=== PATIENT | female | born 1990 | race Two or more races ===

== ENCOUNTER 2016-09-03 23:59 | Inpatient (IN) ==
[2016-09-04] MEDS ORDERED: LACTATED RINGERS 500 ML IV PRN (00:45)
[2016-09-04] MEDS ORDERED: TERBUTALINE 1 MG/1 ML VIAL SUBCUT PRN (00:45)
[2016-09-04] MEDS ORDERED: BUTORPHANOL 2 MG/ML VIAL IV PRN (00:45)
[2016-09-04] MEDS ORDERED: ONDANSETRON 4 MG/2 ML VIAL IV PRN (00:45)
[2016-09-04] MEDS ORDERED: OXYTOCIN/LR 20 UNIT/1,000 ML BAG IV SCH (01:00)
[2016-09-04] MEDS: LACTATED RINGERS 1,000 ML IV SCH ×3 (01:00→07:32)
[2016-09-04 01:41] LABS: Basophils % 0.3 % (0.0-0.8); Eosinophils % 0.4 % (0.00-10.9); Hematocrit 36.7 VOL% (35.7-47.0); Hemoglobin 11.6 GM/DL (12.0-16.0); Immature Granulocytes % 0.7 %; Immature Granulocytes Absolute 0.05 #; Lymphocytes # 1.8 10*3/uL (1.4-4.0); Lymphocytes % 25.3 % (21.3-54.2); Mean Corpuscular HGB Conc 31.6 GM/DL (32-36); Mean Corpuscular Hemoglobin 28 PG (27-34); Mean Corpuscular Volume 88.4 FL (87-102); Mean Platelet Volume 13.8 FL (9.6-12.0); Monocytes # 0.5 10*3/uL (0.11-0.8); Monocytes % 7.4 % (1.7-12.7); Neutrophils # 4.8 10*3/uL (1.4-7.4); Neutrophils % 65.9 % (38.7-73.9); Platelet Count 158 T/CUMM (130-400); Red Blood Count 4.15 MC/CUMM (3.8-5.5); Red Cell Distribution Width 17.3 % (9.3-17.3); White Blood Count 7.3 T/CUMM (4-12)
[2016-09-04] MEDS ORDERED: LACTATED RINGERS 1,000 ML IV ONE (06:31)
[2016-09-04] MEDS ORDERED: FAMOTIDINE 20 MG/2 ML VIAL IV ONE (06:31)
[2016-09-04] MEDS ORDERED: diphenhydrAMINE 50 MG/1 ML VIAL IV PRN ×2 (06:31)
[2016-09-04] MEDS ORDERED: PROMETHAZINE 25 MG/1 ML VIAL IM ONE (06:31)
[2016-09-04] MEDS ORDERED: LACTATED RINGERS 250 ML IV PRN (06:31)
[2016-09-04] MEDS ORDERED: hydrOXYzine HCL 25 MG/1 ML VIAL IM PRN (06:31)
[2016-09-04] MEDS ORDERED: CITRIC ACID/SODIUM CITRATE 30 ML UDCUP PO ONE (06:31)
[2016-09-04] MEDS ORDERED: ePHEDrine 50 MG/ML AMP IV PRN (06:31)
[2016-09-04] MEDS ORDERED: fentaNYL 2 MCG/ROPIV 0.2% EPID 150 ML EPIDURAL SCH (06:31)
[2016-09-04] MEDS ORDERED: LACTATED RINGERS 1,000 ML IV SCH (07:00)
--- NOTE | 2016-09-04 08:53 | History and Physical Update ---
History and Physical Update - History and Physical H&P was reviewed, the patient examined and there: are no changes in the patients condition since last H&P was completed.
--- NOTE | 2016-09-04 08:55 | Operative Note ---
Date of procedure: 09/04/16 Pre-op diagnosis: spontaneous rupture of membranes at 39 weeks. Post-op diagnosis: same Procedure: Spontaneous vaginal delivery Over an intact perineum the patient delivered a liveborn male via spontaneous vaginal delivery. The baby's head was delivered in the MIKE position. Baby had a nuchal cord 1 which was easily reduced. Baby's nose mouth bulb suctioned the perineum. Anterior posterior shoulders followed by the body were delivered with ease. Baby was placed onto the maternal abdomen umbilical cord was doubly clamped and then cut by the father. Cord blood was sent. Placenta was delivered spontaneously and intact with three-vessel cord. Uterus was massaged until was found be firm and well contracted. Hemostasis found be adequate. Therefore all instruments from the the patient. At the end procedure all sponge lap millimeters needle and instrument counts correct 2. Baby and mother stable condition. Apgars 9 and 9. Anesthesia: epidural Surgeon / Physician: David Osuna Estimated blood loss: other (75 mL) Specimens: none sent Condition: stable Disposition: floor Results - Labs CBC & BMP: 09/04/16 01:20 Discharge Plan - Discharge Medications No Action Pnv95/Ferrous Fumarate/FA [ Tablet] 1 tablet PO DAILY - Follow Up or Referral - Forms/Instructions
--- NOTE | 2016-09-04 08:57 | Discharge Summary ---
Hospital Course - Hospital Course Hospital Course: This is a 25-year-old multiparous female was admitted at 39 weeks. Spontaneous rupture membranes and active labor. Patient subsequently delivered a liveborn male via spontaneous vaginal delivery. Hospital course unremarkable day #2 she was ready for discharge Discharge Plan - Discharge Data Disposition: Disch To Home/Self Care Condition at Discharge: Stable Discharge Diet: advance to your usual diet Activity: resume usual activities as tolerated (pelvic rest) Hygiene: no restrictions Weight Bearing at Discharge: full weight bearing Driving: no restrictions Contact your physician if you experience:: fever over 101, Difficulty voiding, Redness or swelling, Nausea/Vomiting, Shortness of breath, Bleeding, pain uncontrolled by pain medications - Discharge Medications Continue Ibuprofen 800 mg PO Q8H #60 tablet No Action Pnv95/Ferrous Fumarate/FA [ Tablet] 1 tablet PO DAILY - Follow Up or Referral Follow Up: David Osuna MD [Physician] - 1 Month - Forms/Instructions Exam - Constitutional Vitals: Period Temp Pulse Resp BP Sys/Oakes Pulse Ox Last 24 Hr 97.4 F-97.8 F 70 18 119/69 General appearance: no acute distress - Head Head exam: Present: normocephalic - ENT ENT exam: Present: normal exam - Neck Neck exam: Present: normal inspection - Respiratory Respiratory exam: Present: clear to auscultation bilaterally - Cardiovascular Cardiovascular exam: Present: regular rate and rhythm - GI/Abdominal GI/Abdominal exam: Present: normal bowel sounds, soft - Extremities Exam Extremities exam: Present: normal inspection - Back Exam Back exam: Present: normal inspection - Neurological Exam Neurological exam: Present: alert, oriented X3 - Psychiatric Psychiatric exam: Present: normal affect, normal mood - Skin Skin exam: Present: normal color, warm Discharge Results Procedures and tests throughout hospitalization: Pending Orders 09/04/16 00:45 Urinalysis Routine Labs on day of discharge: Labs from last 24 hours 09/04/16 09/04/16 09/04/16 01:20 01:20 01:20 WBC 7.3 RBC 4.15 Hgb 11.6 L Hct 36.7 MCV 88.4 MCH 28 MCHC 31.6 L RDW 17.3 Plt Count 158 MPV 13.8 H Neut % (Auto) 65.9 Lymph % (Auto) 25.3 [place] % (Auto) 7.4 Eos % (Auto) 0.4 Baso % (Auto) 0.3 Neut # (Auto) 4.8 Lymph # (Auto) 1.8 [place] # (Auto) 0.5 Eos # (Auto) 0.0 Baso # (Auto) 0.0 Immature Gran % 0.7 Nucleated RBC % 0.0 Immature Gran # 0.05 Nucleated RBCs # 0.00 Treponema pallidum IgG Nonreactive Blood Type O POSITIVE Antibody Screen Negative DS: Provider Date of admission: 09/04/16 00:45 Primary care physician: . No PCP Attending physician on admission: David Osuna MD Consults: 09/04/16 00:45 Consult to Anesthesiology [CONS] Routine Consulting Provider: Reason for Anesthesiology: Epidural Consult Comment: Epidural for pain managment Discharging clinician: David Osuna MD
--- NOTE | 2016-09-04 11:19 | Anesthesia ---
Anesthesia Post OP - Post Ansesthetic Evaluation Patient seen in post op: Yes Resp: within normal limits CV: within normal limits Mental: within normal limits Temp: within normal limits [id number]: within normal limits Nausea and Vomiting: within normal limits Pain: within normal limits
[2016-09-04] MEDS ORDERED: OXYTOCIN/LR 20 UNIT/1,000 ML BAG IV ONE (11:55)
[2016-09-04] MEDS ORDERED: IBUPROFEN 800 MG TABLET PO PRN (20:53)
[2016-09-04] MEDS ORDERED: oxyCODONE/ACETAMINOPHEN 5-325 MG TABLET PO PRN ×2 (20:53)
[2016-09-04] MEDS: DOCUSATE SODIUM 100 MG CAPSULE PO SCH (23:01)
[2016-09-05 07:03] LABS: Basophils % 0.2 % (0.0-0.8); Eosinophils # 0.1 10*3/uL (0.0-0.87); Eosinophils % 0.4 % (0.00-10.9); Hematocrit 34.5 VOL% (35.7-47.0); Hemoglobin 11.2 GM/DL (12.0-16.0); Immature Granulocytes % 0.8 %; Immature Granulocytes Absolute 0.15 #; Lymphocytes # 1.8 10*3/uL (1.4-4.0); Lymphocytes % 9.1 % (21.3-54.2); Mean Corpuscular HGB Conc 32.5 GM/DL (32-36); Mean Corpuscular Hemoglobin 28 PG (27-34); Mean Corpuscular Volume 86.3 FL (87-102); Mean Platelet Volume 12.5 FL (9.6-12.0); Monocytes # 0.9 10*3/uL (0.11-0.8); Monocytes % 4.8 % (1.7-12.7); Neutrophils # 16.5 10*3/uL (1.4-7.4); Neutrophils % 84.7 % (38.7-73.9); Platelet Count 146 T/CUMM (130-400); Red Cell Distribution Width 17.8 % (9.3-17.3); White Blood Count 19.5 T/CUMM (4-12)
[2016-09-05] MEDS: DOCUSATE SODIUM 100 MG CAPSULE PO SCH ×2 (16:42→22:00)
[2016-09-06 07:33] VITALS: BP 113/67
[2016-09-06] MEDS: DOCUSATE SODIUM 100 MG CAPSULE PO SCH (09:30)
[2016-09-06] MEDS ORDERED: INFLUENZA VIRUS VACCINE 0.5 ML SYRINGE IM ONE (09:37)
[2016-09-06] MEDS ORDERED: DIPH/TET/ACEL PERT BOOSTER VACCINE 0.5 ML VIAL IM ONE (09:38)
== END 2016-09-06 12:30 | disposition home or self-care (01) | DRG 775 ==
LOC: N.LDOUT 23:59 → N.LD 09-04 00:01 → N.OB 09-04 11:19
PROVIDERS: ADMIT Obstetrics & Gynecology; ATTEND Obstetrics & Gynecology